=== PATIENT | female | born 1980 | race Caucasian/White ===

== ENCOUNTER 2021-01-08 10:29 | Emergency (ER) | payer OTHER ==
[2021-01-08 10:47] VITALS: PULSE 91
--- NOTE | 2021-01-08 11:26 | ERPHSYRPT ---
- History of Present Illness Time Seen by Provider: 01/08/21 10:46 Source: patient Exam Limitations: no limitations Patient Subjective Stated Complaint: sore throat x 2 days Triage Nursing Assessment: pt to ED c/o sore throat x 2 days. rates 4/10 that worsens with swallowing. on assessment throat appears pink and moist. no swelling noted and no diff breathing reported. Physician History: 40 years old female presented in the ER with 2 days history of sore throat with progressive worsening. Patient report having worsening with swallowing solid food but okay with liquid. She noticed some blistering yesterday which are improved now. No fever or chills reported. No swelling floor of mouth/tongue. No difficulty breathing cough or sick contact. Timing/Duration: day(s) (2), gradual onset, worse Cough Quality/Degree: moderate Possible Cause: no prior episodes Associated Symptoms: sore throat, No fever, No chest pain/soreness, No cough, No dizziness, No earache, No facial pain, No headache, No lightheadedness, No muscle aches, No nasal congestion, No nasal drainage, No shortness of breath, No sinus infection, No wheezing Allergies/Adverse Reactions: Iodinated Contrast Media Allergy (Verified 01/08/21 10:47) iodine Allergy (Verified 01/08/21 10:47) progesterone Allergy (Verified 01/08/21 10:47) Home Medications: Gabapentin 300 mg [Neurontin 300 mg] 300 mg PO DAILY 01/08/21 [History] Hx Tetanus, Diphtheria Vaccination/Date Given: No Hx Influenza Vaccination/Date Given: No Hx Pneumococcal Vaccination/Date Given: No Immunizations Up to Date: No Travel Risk - International Travel Have you traveled outside of the country in past 3 weeks: No - Coronavirus Screening Are you exhibiting any of the following symptoms?: No Close contact with a COVID-19 positive Pt in past 14-21 Days: No - Vaccine Status Have you recieved a Covid-19 vaccination: No - Review of Systems Constitutional: No Symptoms Eyes: No Symptoms Ears, Nose, & Throat: Throat Pain, Throat Swelling, Painful Swallowing Respiratory: No Symptoms Cardiac: No Symptoms Abdominal/Gastrointestinal: No Symptoms Genitourinary Symptoms: No Symptoms Musculoskeletal: No Symptoms Skin: No Symptoms Neurological: No Symptoms Psychological: No Symptoms Endocrine: No Symptoms Hematologic/Lymphatic: No Symptoms Immunological/Allergic: No Symptoms - Past Medical History Pertinent Past Medical History: Yes Neurological History: TIA Respiratory History: Asthma Psycho-Social History: Depression, Other Other Medical History: 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 barrets espohagus. PTSD, ADHD - Past Surgical History Past Surgical History: No - Social History Smoking Status: Former smoker Exposure to second hand smoke: No Drug Use: methamphetamines Patient Lives Alone: No ([facility]) - Female History Hx Now: No (tubal) - Nursing Vital Signs Nursing Vital Signs: Initial Vital Signs Temperature 98.6 F 01/08/21 10:36 Pulse Rate 91 H 01/08/21 10:36 Respiratory Rate 19 01/08/21 10:36 Blood Pressure 140/113 01/08/21 10:36 O2 Sat by Pulse Oximetry 99 01/08/21 10:36 Pain Scale Pain Intensity 4 - Physical Exam General Appearance: no apparent distress, alert Eye Exam: PERRL/EOMI, eyes nml inspection Ears, Nose, Throat Exam: normal ENT inspection, pharyngeal erythema, No t onsillar exudate Neck Exam: normal inspection, non-tender, supple, full range of motion, No meningismus Respiratory Exam: normal breath sounds, lungs clear Cardiovascular Exam: regular rate/rhythm, normal heart sounds Extremity Exam: normal inspection, normal range of motion Neurologic Exam: alert, oriented x 3, cooperative Skin Exam: normal color SpO2 Interpretation: normal SpO2: 99 O2 Delivery: Room Air - Course Nursing assessment & vital signs reviewed: Yes Ordered Tests: Active Orders 24 hr Category Date Time Status INFLUENZA A+B ANDREA Stat Lab 01/08/21 11:05 Received - Progress Progress: unchanged Air Movement: fair Progress Note: 01/08/21 11:24 She is offered pain medicine which he refused. Negative strep and flu, culture is pending. Even though her rapid strep is negative, I will still treat her with Z-Neymar. Blood Culture(s) Obtained: No Antibiotics given: Yes Counseled pt/family regarding: lab results, diagnosis, need for follow-up - Departure Departure Disposition: Home Clinical Impression: Acute pharyngitis Qualifiers: Pharyngitis/tonsillitis etiology: other specified organisms Qualified Code(s): J02.8 - Acute pharyngitis due to other specified organisms Condition: Stable Critical Care Time: No Referrals: JORGE LUIS STACK [Primary Care Provider] - (1-2 days for reevaluation) Instructions: Sore Throat, Adult (DC) Additional Instructions: Take Tylenol/ibuprofen as needed for pain/symptomatic relief. Use warm salt water gargles for soothing effect. Drink plenty of fluids. Avoid solid food. Continue with antibiotics. Follow-up with primary care for reevaluation. Return to ER for worsening sore throat, difficulty swallowing or if develop difficulty breathing/fever chills etc. Prescriptions: Azithromycin 250 mg [Zithromax 250 MG TABLET] 250 mg PO ZPACK #6 tablet
[2021-01-08 11:45] VITALS: BP 131/96; O2SAT 94
[2021-01-08 11:46] LABS: INFLUENZA A NEGATIVE (NEGATIVE); INFLUENZA B NEGATIVE (NEGATIVE)
== END 2021-01-08 12:07 | disposition home or self-care (01) ==
LOC: ED 10:29
DX: J02.8 Acute pharyngitis due to other specified organisms (principal)
CPT/HCPCS: 87400; 87651; 99283

== ENCOUNTER 2021-03-24 02:55 | Emergency (ER) | payer OTHER ==
[2021-03-24] MEDS ORDERED: TORAdol 30 mg Injection IM ONE (03:25)
[2021-03-24] MEDS ORDERED: TORAdol 30 mg Injection ONE ×2 (03:27→03:28)
--- NOTE | 2021-03-24 04:03 | ERPHSYRPT ---
- History of Present Illness Time Seen by Provider: 03/24/21 03:15 Source: patient Exam Limitations: no limitations Patient Subjective Stated Complaint: pt states "I started a new job and hurt my back on wednesday." Triage Nursing Assessment: pt ambulated into the er; pt is axo x4; c/o back pain; pt states 7/10 pain to lower back; pt states that she started a new job; pt states that she had lifted 30lb turkey boxes all day on wednesday; pt states zoie t she was resting her back all weekend and no relief; pt states that she has flexeril from a previous injury and has pill left; tenderness to left lower back; no deformity to back; pt has slow ambulation; good cap refill; strong pulses to BLE; pt states pain with movement; vital wnl Physician History: Patient is a 41-year-old white female presents complaint of back pain she started a new job 3 weeks 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 Timing/Duration: week(s) (3) Method of Injury: lifting Quality: sharp, cramping Back Pain Location: lumbar spine Back Pain Radiation: upper legs Severity of Pain-Max: severe Severity of Pain-Current: severe Modifying Factors: Improves With: movement Allergies/Adverse Reactions: Iodinated Contrast Media Allergy (Verified 03/24/21 03:04) iodine Allergy (Verified 03/24/21 03:04) progesterone Allergy (Verified 03/24/21 03:04) Home Medications: Gabapentin 300 mg [Neurontin 300 mg] 300 mg PO BID 01/08/21 [History] Cyclobenzaprine HCl 10 mg [Cyclobenzaprine 10 MG] 10 mg PO BID 03/24/21 [History] Hx Tetanus, Diphtheria Vaccination/Date Given: Yes Hx Influenza Vaccination/Date Given: No Hx Pneumococcal Vaccination/Date Given: No Travel Risk - International Travel Have you traveled outside of the country in past 3 weeks: No - Coronavirus Screening Are you exhibiting any of the following symptoms?: No Close contact with a COVID-19 positive Pt in past 14-21 Days: No - Vaccine Status Have you recieved a Covid-19 vaccination: No - Review of Systems Constitutional: No Fever, No Chills Eyes: No Symptoms Ears, Nose, & Throat: No Symptoms Respiratory: No Cough, No Dyspnea Cardiac: No Chest Pain, No Edema, No Syncope Abdominal/Gastrointestinal: No Abdominal Pain, No Nausea, No Vomiting, No Diarrhea Genitourinary Symptoms: No Dysuria Musculoskeletal: No Back Pain, No Neck Pain Skin: No Rash Neurological: No Dizziness, No Focal Weakness, No Sensory Changes Psychological: No Symptoms Endocrine: No Symptoms All Other Systems: Reviewed and Negative - Past Medical History Pertinent Past Medical History: Yes Neurological History: TIA Respiratory History: Asthma Psycho-Social History: Depression, Other Other Medical History: 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 barrets espohagus. PTSD, ADHD - Past Surgical History Past Surgical History: No Musculoskeletal: Orthopedic Surgery, Other Female Surgical History: Section Other Surgical History: rt side neck surgery, ovary removal, back surgery, cyst removal, polyps removed - Social History Smoking Status: Former smoker Exposure to second hand smoke: No Drug Use: methamphetamines Patient [facility] Alone: No ([facility]) - Female History Hx Now: No - Nursing Vital Signs Nursing Vital Signs: Initial Vital Signs Temperature 98.5 F 03/24/21 03:05 Pulse Rate 99 H 03/24/21 03:05 Respiratory Rate 20 03/24/21 03:05 Blood Pressure 134/101 03/24/21 03:05 O2 Sat by Pulse Oximetry 98 03/24/21 03:05 Pain Scale Pain Intensity [Back] 7 Pain Intensity 7 - Physical Exam General Appearance: moderate distress, alert Eye Exam: PERRL/EOMI, eyes nml inspection Neck Exam: normal inspection, non-tender, supple, full range of motion, No meningismus, No midline tenderness Respiratory Exam: normal breath sounds, lungs clear, No respiratory distress Cardiovascular Exam: regular rate/rhythm, normal heart sounds Gastrointestinal Exam: soft, No tenderness, No mass Back Exam: vertebral tenderness, decreased range of motion, muscle spasm, point tenderness Extremity Exam: normal inspection, normal range of motion, No calf tenderness, No pedal edema Neurologic Exam: alert, oriented x 3, cooperative, 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, normal mood/affect, nml station & gait, sensation nml, No motor deficits Skin Exam: normal color, warm, dry, No rash SpO2: 98 - Course Nursing assessment & vital signs reviewed: Yes - Radiology Exams L-Spine X-ray Interpretation: Interpreted by me, Other (Retrolisthesis L5 on S1) Ordered Tests: Active Orders 24 hr Category Date Time Status LUMBAR COMPLETE (MIN 4 VIEWS) Stat Exams 03/24/21 03:25 Taken Medication Summary Discontinued Medications Generic Name Dose Route Start Last Admin Trade Name Liliane PRN Reason Stop Dose Admin Ketorolac Tromethamine 60 mg 03/24/21 03:25 03/24/21 03:28 Toradol 30 Mg Injection IM 03/24/21 03:26 60 mg STAT ONE Administration Ketorolac Tromethamine Confirm 03/24/21 03:27 Toradol 30 Mg Injection Administered 03/24/21 03:28 Dose 30 mg .ROUTE .STK-MED ONE Ketorolac Tromethamine Confirm 03/24/21 03:28 Toradol 30 Mg Injection Administered 03/24/21 03:29 Dose 30 mg .ROUTE .STK-MED ONE - Progress Progress: improved - Departure Departure Disposition: Home Clinical Impression: Low back pain Condition: Stable Critical Care Time: No Referrals: JORGE LUIS STACK [Primary Care Provider] - Instructions: Sciatica (DC), Low Back Pain (DC) Prescriptions: Cyclobenzaprine HCl [Flexeril] 5 mg PO TID 10 Days #30 tablet Diclofenac Sodium 50 mg [Voltaren 50 mg] 50 mg PO TID 10 Days #30 tablet.ec
[2021-03-24 04:07] VITALS: BP 140/92; PULSE 87; O2SAT 99
--- NOTE | 2021-03-24 09:08 | XRAY ---
Indication: Low back pain following lifting boxes at work. Comparison: None 5 view lumbar spine demonstrates 5 lumbar segments with moderate L5-S1 degenerative disc space loss/endplate spurring, mild bilateral degenerative facet arthropathy, and 2 mm retrolisthesis L5 on S1. Incidental splenic calcified granulomas and minimal aortic calcifications. No other bony, articular, or soft tissue abnormalities.
== END 2021-03-24 04:13 | disposition home or self-care (01) ==
LOC: ED 02:55
DX: M54.5 Low back pain (principal)
CPT/HCPCS: 72110; 96372; 99284; J1885